=== PATIENT | male | born 1990 | race Caucasian/White ===

== ENCOUNTER → 2018-08-09 | Outpatient (CLI) | payer OTHER ==
--- NOTE | 2018-08-22 09:41 | REP ---
Clinical: Abnormal soft tissue findings by physical examination and ultrasound. Technique: Axial noncontrast images of the right femur with coronal and sagittal re-formations. Findings: There appear to be two metallic-like densities over the right anterior thigh. The more superior density exhibits beam-hardening artifact, measures approximately 4.5 mm and appears to be very superficial on the skin surface (images 60-62). The second density also appears very dense and is embedded in the subcutaneous tissue which also may be foreign body or calcification and measures approximately 5 mm. (images 63-65). The remainder of the examination including osseous structures, joint spaces, and surrounding musculature is normal. Impression: Two suspected foreign body structures as described above. Electronically Signed by Arjun Albright MD 08/22/2018 09:32 A
== END ==
LOC: M RAD 15:39
PROVIDERS: ATTEND Family Medicine
DX: L98.9 Disorder of the skin and subcutaneous tissue, unspecified (principal); Z18.10 Retained metal fragments, unspecified